=== PATIENT | female | born 1940 | race Caucasian/White ===

== ENCOUNTER → 2017-10-06 | Outpatient (CLI) | payer MEDICARE, OTHER ==
[~2017-10-06] MED LIST: ASPIRIN EC325 M1 PO; CENTRUM SILVER1 TA2 PO; DIOVAN80 MG PO; VALIUM5 MG PO
--- NOTE | 2017-10-08 09:28 | RADIOLOGY REPORT PS360 ---
DIG MAMM-SCREEN JOANIE W/CAD ORDERING PHYSICIAN : Mitchell Elias MD PATIENT AGE: 77 years GENDER: Female HISTORY. Sister with breast cancer in her 60s.. Patient with no new complaints. No hormones. COMPARISON: Previous mammogram studies from April 2015 and 2013, September 2016, Also, April 2013 utilized TECHNIQUE: Std CC & MLO images were obtained. R2 CAD reviewed. FINDINGS: Scattered small & tiny areas of nodularity throughout both breast are again observed and similar to previous study dating back to 2012. No significant progression. Multiplicity supports benign nature. No one area of greater concern then another. . Also note a cyst was identified on on the 2012 ultrasound right breast reflecting underlying cystic elements here as well. RIGHT BREAST: The scattered areas of nodularity. No significant new findings . The small nodular density at the lateral right breast is not changed appreciably since last year. Is present since at least 2012 :and actually appears similar to one of the 2 cc views from 2013 cc exams also.-. Given this longer-term stability follow-up would be adequate. LEFT BREAST: But unchanged. Again scattered nodular densities similar studies dating back to 2011 IMPRESSION: --- Scattered small nodular densities bilaterally again observed & have been present and fairly stable since 2012. With such I believe follow-up in one year the adequate but annual follow-up should be emphasized and encouraged.. One no one area of greater concern then another. Recommend & would emphasize/encourage follow-up in one year for ongoing evaluation, particularly in view of family history. BI-RADS CATEGORY: 2_Benign RECOMMENDED FOLLOWUP: 12M 12 MONTH FOLLOW-UP (A letter has been sent to the patient regarding results of the study.)
== END ==
LOC: RAD 10:11
DX: Z12.31 Encounter for screening mammogram for malignant neoplasm of breast (principal)
CPT/HCPCS: G0202